=== PATIENT | female | born 1985 | race Caucasian/White ===

== ENCOUNTER 2022-04-16 03:40 | Outpatient (CLI) | payer BC | END 2022-04-16 03:41 | disposition critical access hospital (66) | LOC: EMS 03:40 | DX: J10.1 Influenza due to other identified influenza virus with other respiratory manifestations (principal); R55 Syncope and collapse | CPT/HCPCS: A0425; A0429 ==

== ENCOUNTER 2022-04-16 04:15 | Emergency (ER) | payer BC ==
[2022-04-16] MEDS ORDERED: SODIUM CHLORIDE 0.9% 1,000 ML IV STA (04:27)
[2022-04-16] MEDS ORDERED: ONDANSETRON 4 MG/2 ML VIAL IVP STA (04:27)
[2022-04-16] MEDS ORDERED: KETOROLAC 30 MG/ML VIAL IVP STA (04:27)
[2022-04-16 04:45] LABS: BASOPHILS % (AUTO) 0.3 %; EOSINOPHILS % (AUTO) 1.3 %; HGB - HEMOGLOBIN 13.6 g/dL (12.0-16.0); MONOCYTES % (AUTO) 5.6 %; PLT - PLATELET COUNT 225 10^3/uL (130-450)
[2022-04-16 04:47] LABS: HCT - HEMATOCRIT 40.4 % (37.0-47.0); LYMPHOCYTES % (AUTO) 14.2 %; MEAN CORPUSCULAR HGB CONC 33.7 g/dL (32.0-36.0); MEAN CORPUSCULAR VOLUME 83.3 fL (81.0-99.0); MEAN PLATELET VOLUME 10.4 fL (7.9-10.8); NEUTROPHILS % (AUTO) 78.1 %; RED BLOOD COUNT 4.85 10^6/uL (4.20-5.40); WHITE BLOOD COUNT 10.5 x10^3/uL (4.8-10.8)
[2022-04-16 04:56] LABS: ALBUMIN 4.1 g/dL (3.2-5.5); ALBUMIN/GLOBULIN RATIO 1.1 (1.0-2.2); BILIRUBIN,TOTAL 0.7 mg/dL (0.2-1.0); CALCIUM 9.3 mg/dL (8.5-10.3); CREATININE 0.6 mg/dL (0.4-1.0); POTASSIUM 3.4 mmol/L (3.5-5.0); TOTAL PROTEIN 7.8 g/dL (6.7-8.2)
[2022-04-16 05:17] LABS: ABNORMAL LYMPHS % (MANUAL) 8 %; BAND NEUTROPHILS % (MANUAL) 8 %; DIFFERENTIAL COMMENT MANUAL DIFFERENTIAL; EOSINOPHILS # (MANUAL) 0.3 10^3/uL (0-0.7); LYMPHOCYTES # (MANUAL) 1.9 10^3/uL (1.5-3.5); LYMPHOCYTES % (MANUAL) 10 %; MONOCYTES # (MANUAL) 0.8 10^3/uL (0.0-1.0); NEUTROPHILS # (MANUAL) 7.5 10^3/uL (1.5-6.6); PLATELET ESTIMATE, MANUAL NORMAL (130-450,000) (NORMAL); PLATELET MORPHOLOGY RARE GIANT PLATELETS (NORMAL); RBC MORPHOLOGY (MULTIPLE) 1+ OVALOCYTES (NORMAL)
--- NOTE | 2022-04-16 05:23 | ED Physician Documentation ---
History of Present Illness - Stated complaint Stated Complaint: FLU - Chief complaint Chief Complaint: General - History obtained from History obtained from: Patient - Additonal information Additional information: Patient is a 36-year-old female presenting for evaluation of Feeling feverish, weakness, nausea. She was diagnosed with influenza A at the walk-in clinic yesterday. She was given 2 pills of Zofran as she had reported nausea and poor appetite. She reports breaking out into sweats, primarily at night. This evening she got into the shower and was feeling weak and lightheaded and called 911. She denies syncope. She denies productive cough, chest pain, difficulty breathing, abdominal pain, dysuria. She is using Tylenol for her fevers. Her family members at home are also ill with similar symptoms.She reports being ill for the last week. Last week she had more difficulties with vomiting but that has improved and now she continues to have some nausea. Review of Systems Constitutional: reports: Fever Nose: denies: Congestion Cardiac: denies: Chest pain / pressure Respiratory: reports: Cough. denies: Dyspnea GI: reports: Nausea. denies: Abdominal Pain : denies: Dysuria Musculoskeletal: denies: Back pain Neurologic: denies: Syncope, Headache PD PAST MEDICAL HISTORY - Past Medical History Past Medical History: Yes Cardiovascular: None Respiratory: None Neuro: Other Endocrine/Autoimmune: None GI: None [employer]: None : None HEENT: None Psych: Post traumatic stress disorder Musculoskeletal: None Derm: None Other Past Medical History: POTS SYNDROME..BRAIN TUMOR.. - Past Surgical History Past Surgical History: Yes General: Other - Present Medications Home Medications: Ambulatory Orders Medication Instructions Recorded Confirmed Ondansetron Odt [Zofran] 4 mg TL Q6H PRN #10 tablet 04/16/22 - Allergies Allergies/Adverse Reactions: Allergies Allergy/AdvReac Type Severity Reaction Status Date / Time acetaminophen [From Percocet] AdvReac Unknown Verified 04/16/22 04:59 oxycodone [From OxyContin] AdvReac Unknown Verified 04/16/22 04:58 propoxyphene AdvReac Unknown Verified 04/16/22 04:59 [From Darvocet-N] - Social History Does the pt smoke?: No Smoking Status: Never smoker Does the pt drink ETOH?: No Does the pt have substance abuse?: No - Immunizations Immunizations are current?: Yes - POLST Patient has POLST: No PD ED PE NORMAL - General General: Alert and oriented X 3, No acute distress, Well developed/nourished - HEENT HEENT: Atraumatic, Moist mucous membranes - Neck Neck: Supple, no meningeal sign - Cardiac Cardiac: RRR, Strong equal pulses - Respiratory Respiratory: No respiratory distress, Clear bilaterally - Abdomen Abdomen: Soft, Non tender - Derm Derm: Warm and dry - Extremities Extremities: No edema - Neuro Neuro: Normal speech Results - Vitals Vitals: Vital Signs - 24 hr 04/16/22 04/16/22 04/16/22 04:20 04:26 04:42 Temperature 36.9 C Heart Rate 105 H 76 80 Respiratory 20 19 20 Rate Blood Pressure 120/92 H O2 Saturation 100 100 100 04/16/22 04/16/22 04/16/22 05:06 05:18 05:37 Temperature 37.1 C 37.1 C Heart Rate 80 71 71 Respiratory 16 17 18 Rate Blood Pressure 123/90 H 116/75 O2 Saturation 100 100 100 Oxygen O2 Source Room air - Labs Labs: Laboratory Tests 04/16/22 04/16/22 04:38 04:38 WBC 10.5 RBC 4.85 Hgb 13.6 Hct 40.4 MCV 83.3 MCH 28.0 MCHC 33.7 RDW 13.0 Plt Count 225 MPV 10.4 Neut # (Auto) Not Reportable Lymph # (Auto) Not Reportable White # (Auto) Not Reportable Eos # (Auto) Not Reportable Baso # (Auto) Not Reportable Absolute Nucleated RBC Not Reportable Total Counted 100 Band Neuts % (Manual) 8 Abnorm Lymph % (Manual) 8 Nucleated RBC % Not Reportable Neutrophils # (Manual) 7.5 H Lymphocytes # (Manual) 1.9 Monocytes # (Manual) 0.8 Eosinophils # (Manual) 0.3 Basophils # (Manual) 0.0 Differential Comment MANUAL DIFFERENTIAL Platelet Estimate NORMAL (130-450,000) Platelet Morphology RARE GIANT PLATELETS RBC Morph Micro Appear 1+ OVALOCYTES Sodium 140 Potassium 3.4 L Chloride 99 L Carbon Dioxide 27 Anion Gap 14.0 H BUN 9 Creatinine 0.6 Estimated GFR (MDRD) 112 Glucose 107 H Calcium 9.3 Total Bilirubin 0.7 AST 25 ALT 32 Alkaline Phosphatase 49 Total Protein 7.8 Albumin 4.1 Globulin 3.7 Albumin/Globulin Ratio 1.1 Lipase 30 PD MEDICAL DECISION MAKING - ED course Complexity details: reviewed results, re-evaluated patient, d/w patient ED course: Patient with recent Influenza diagnosis presenting for evaluation of weakness. Vital signs here are stable.Abdominal exam is benign. Lung sounds are clear And she is not labored with her breathing. Labs were checked and patient did receive IV fluids. She is feeling better with Toradol, fluids and Zofran. Discussed continued supportive care. Patient counseled on concerning symptoms to return for. Departure - Departure Disposition: Home, Self Care Clinical Impression: Flu-like symptoms Condition: Stable Instructions: ED Fever Control, ED Flu Prescriptions: Ondansetron Odt [Zofran] 4 mg TL Q6H PRN #10 tablet PRN Reason: Nausea / Vomiting Comments: I have sent a prescription for nausea medications to [facility] in [place]. Please continue with acetaminophen or ibuprofen as needed for fevers and body aches, plenty of fluids/hydration and rest. Return to the ER with any worsening symptoms such as difficulty breathing or vomiting. Discharge Date/Time: 04/16/22 06:12
[2022-04-16 05:38] VITALS: BP 116/75
== END 2022-04-16 06:12 | disposition home or self-care (01) ==
LOC: ED 04:15
DX: J10.1 Influenza due to other identified influenza virus with other respiratory manifestations (principal); R11.0 Nausea; R53.1 Weakness
CPT/HCPCS: 36415; 80053; 83690; 85025; 96374; 96375; 99282